=== PATIENT | female | born 1965 | race Caucasian/White ===

== ENCOUNTER 2017-01-21 08:17 | Emergency (ER) | payer BC ==
[2017-01-21 08:26] VITALS: BP 115/65
[2017-01-21] MEDS ORDERED: Dexamethasone 4 MG/ML SDV IM ONE (08:49)
[2017-01-21] MEDS ORDERED: Acetaminophen/HYDROcodone 325-5 MG Tab PO ONE ×2 (08:49→10:00)
[2017-01-21] MEDS ORDERED: Ketorolac 60 MG/2 ML SDV IM ONE (08:50)
[2017-01-21] MEDS ORDERED: Take Home: Acetaminophen/HYDROcodone 325-5 MG, 2 Tab Pack PO ONE (09:20)
[2017-01-21] MEDS ORDERED: Take Home: Cyclobenzaprine 10 MG Tab, 4 Tab Pack PO ONE (09:23)
--- NOTE | 2017-01-21 09:30 | EDM.PDOC ---
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: Acetaminophen, NSAIDS - Related Data Allergies/ADRs: Allergies Allergy/AdvReac Type Severity Reaction Status Date / Time aspirin Allergy Anaphylactic Verified 01/21/17 08:26 Shock Home Meds: Home Meds Acetaminophen [Tylenol Arthritis] 650 mg PO BID 01/21/17 [History] Acyclovir [Zovirax] 800 mg PO DAILY 01/21/17 [History] Docusate Sodium [Stool Softener] 500 mg PO BEDTIME 01/21/17 [History] Fexofenadine [Bibi] 60 mg PO DAILY PRN 01/21/17 [History] Fluticasone Propionate [Flonase] 1 spray NASBOTH DAILY PRN 01/21/17 [History] Ibuprofen 400 mg PO Q6H PRN 01/21/17 [History] Polyethylene Glycol 3350 [MiraLAX] 17 gm PO DAILY 01/21/17 [History] diphenhydrAMINE [Benadryl] 25 mg PO BEDTIME PRN 01/21/17 [History] Past Medical History HEENT History: Reports: Allergic rhinitis Gastrointestinal History: Reports: Chronic constipation, Irritable bowel syndrome - Past Surgical History HEENT Surgical History: Reports: Tonsillectomy GI Surgical History: Reports: Cholecystectomy, Other (see below) Other GI Surgeries/Procedures: femoral hernia repair Female Surgical History: Reports: section Social & Family History - Tobacco Use Smoking Status *Q: Never Smoker - Recreational Drug Use Recreational Drug Use: No ED ROS GENERAL - Review of Systems Review Of Systems: See Below Constitutional: Reports: no symptoms HEENT: Reports: No symptoms Respiratory: Reports: No Symptoms Cardiovascular: Reports: No symptoms Endocrine: Reports: no symptoms Musculoskeletal: Reports: back pain, leg pain, muscle stiffness Skin: Reports: no symptoms Neurological: Reports: Tingling, Difficulty Walking Psychiatric: Reports: No symptoms Hematologic/Lymphatic: Reports: no symptoms ED EXAM,LOWER BACK PAIN/INJURY - Physical Exam Exam: See Below Exam Limited By: No limitations General Appearance: alert, anxious, mild distress Ears: normal external exam, normal canal Nose: normal inspection Throat/Mouth: Normal inspection, Normal lips Head: atraumatic Neck: normal inspection, supple Respiratory/Chest: no respiratory distress Cardiovascular: normal peripheral pulses Back Exam: normal inspection, full range of motion Extremities: normal inspection, normal range of motion Psychiatric: anxious Skin Exam: Warm, Dry Comments: Lower back very stiff, significantly decreased ROM. Course - Vital Signs Last Recorded V/S: Last Vital Signs Temp 37.0 C 01/21/17 08:19 Pulse 75 01/21/17 08:19 Resp 20 01/21/17 08:19 BP 115/65 01/21/17 08:19 Pulse Ox 99 01/21/17 08:19 - Orders/Labs/Meds Orders: Active Orders 24 hr Category Date Time Status Lumbar Spine 2 or 3V [CR] Stat Exams 01/21/17 08:51 Ordered Meds: Medications Discontinued Medications Generic Name Dose Route Start Last Admin Trade Name [place] PRN Reason Stop Dose Admin Acetaminophen/Hydrocodone Bitart 2 tab 01/21/17 08:49 01/21/17 09:00 [place] 325-5 Mg PO 01/21/17 08:50 2 tab ONETIME ONE Administration Acetaminophen/Hydrocodone Bitart 4 packet 01/21/17 09:20 Take Home: Acetaminophen/Hydrocod, 2 Tab Pack PO 01/21/17 09:21 ONETIME ONE Cyclobenzaprine HCl 2 packet 01/21/17 09:23 Take Home: Cyclobenzaprine 10 Mg, 4 Tab Pack PO 01/21/17 09:24 ONETIME ONE Dexamethasone 8 mg 01/21/17 08:49 01/21/17 08:59 Dexamethasone IM 01/21/17 08:50 8 mg ONETIME ONE Administration Ketorolac Tromethamine 60 mg 01/21/17 08:50 01/21/17 09:00 Toradol IM 01/21/17 08:51 60 mg ONETIME ONE Administration Departure - Departure Time of Disposition: 09:30 Disposition: Home, Self-Care 01 Condition: good Clinical Impression: Lumbago of lumbar region with sciatica Instructions: Back Pain, Adult, [id number] Forms: ED Department Discharge Additional Instructions: Follow up with your regular doctor Sunday for referral to Ortho, and possible MRI. - My Orders Last 24 Hours: My Active Orders 01/21/17 08:51 Lumbar Spine 2 or 3V [CR] Stat - Assessment/Plan Last 24 Hours: My Active Orders 01/21/17 08:51 Lumbar Spine 2 or 3V [CR] Stat
[2017-01-21] MEDS ORDERED: Cyclobenzaprine 10 MG Tab PO ONE (10:00)
== END 2017-01-21 09:45 | disposition home or self-care (01) ==
LOC: CC.ED 08:17
DX: M54.40 Lumbago with sciatica, unspecified side (principal); Z98.890 Other specified postprocedural states; Z90.49 Acquired absence of other specified parts of digestive tract; Z79.899 Other long term (current) drug therapy; Z88.6 Allergy status to analgesic agent
CPT/HCPCS: 72100; 96372; 99283; A9270; J1100; J1885